=== PATIENT | female | born 1975 | race Two or more races ===

== ENCOUNTER 2023-12-10 11:57 | Emergency (ER) | payer MEDICAID ==
[~2023-12-10] VITALS: Ht 172.7 cm; Wt 100.0 kg
[2023-12-10 12:07] VITALS: TEMP 98
[2023-12-10 14:00] VITALS: BP 143/88; PULSE 75; RESP 14
[2023-12-10] MEDS ORDERED: PROM473S4 PO (14:06)
[2023-12-10] MEDS ORDERED: PRED-554 PO (14:09)
== END 2023-12-10 14:25 | disposition home or self-care (01) ==
LOC: EMS 11:59
DX: J45.909 Unspecified asthma, uncomplicated (principal); F17.210 Nicotine dependence, cigarettes, uncomplicated; Z90.49 Acquired absence of other specified parts of digestive tract; Z88.8 Allergy status to other drugs, medicaments and biological substances
CPT/HCPCS: 99283; Z7502